=== PATIENT | female | born 1990 | race Caucasian/White ===

== ENCOUNTER 2017-12-30 18:40 | Emergency (ER) | payer OTHER ==
[~2017-12-30] VITALS: Ht 167.6 cm; Wt 96.6 kg
[2017-12-30 19:01] VITALS: Ht 167.6 cm; Wt 96.6 kg
[2017-12-30 19:30] VITALS: BP 124/48
== END 2017-12-30 19:30 | disposition home or self-care (01) ==
LOC: ED 18:40
DX: K60.2 Anal fissure, unspecified (principal)
CPT/HCPCS: 99406